=== PATIENT | male | born 1950 | race Caucasian/White ===

== ENCOUNTER 2023-11-17 13:04 | Day surgery (SDC) | payer MEDICARE, OTHER ==
[~2023-11-17] VITALS: Ht 175.3 cm; Wt 78.4 kg
[~2023-11-17 13:04] MED LIST: CARV3.125; DIAZ5 PO; DIGO.25 PO; HYDACE10B PO; HYDACE5 PO; Lactated Ringer's 1,000 ML IV ONE; NEBI10 PO; OXYACE5T PO; RXHYDMOR2 PO; WARF7.5 PO; propofoL 40 ML IV ONE; work note
[2023-11-17] MEDS ORDERED: Lactated Ringer's 1,000 ML IV ONE (14:00)
[2023-11-17 15:12] VITALS: BP 120/77
[2023-11-17] MEDS ORDERED: Ondansetron HCl 2 MG / ML 2ML Vial ONE (15:41)
== END 2023-11-17 15:08 | disposition home or self-care (01) ==
LOC: ORSCSDS 13:04
PROVIDERS: Surgery
PROC: 0DBN8ZX Excision of Sigmoid Colon, Via Natural or Artificial Opening Endoscopic, Diagnostic (ICD-10-PCS; principal; 2023-11-17 14:15)
PROC: 0DBK8ZX Excision of Ascending Colon, Via Natural or Artificial Opening Endoscopic, Diagnostic (ICD-10-PCS; principal; 2023-11-17 14:15)
DX: Z12.11 Encounter for screening for malignant neoplasm of colon (principal); K63.5 Polyp of colon; D12.2 Benign neoplasm of ascending colon; K57.30 Diverticulosis of large intestine without perforation or abscess without bleeding; Z86.010 Personal history of colon polyps; I48.91 Unspecified atrial fibrillation; I10 Essential (primary) hypertension; K21.9 Gastro-esophageal reflux disease without esophagitis; E78.2 Mixed hyperlipidemia; Z79.01 Long term (current) use of anticoagulants; Z79.899 Other long term (current) drug therapy
CPT/HCPCS: J2405; J2704; J7120